=== PATIENT | male | born 1965 | race Caucasian/White ===

== ENCOUNTER 2024-05-30 05:30 | Emergency (ER) | payer BC, SELFPAY ==
--- OUTSIDE RECORDS SUMMARY | 2024-05-30 05:32 | XMS_ITS | Referral Summary ---
Author Organization [facility] Address [address] [place] [address] Care Team Providers Care Is Consultant Name Role Phone None Reported, Pcp Primary Care Provider Unavail able Source Comments Patient records contain information from all sites at [facility]. For routine questions regarding patient records, call [phone] during business hours, M-F 8:00 AM - 5:00 PM Central Time. Record requests for emergency care only can be directed to [phone] at any time.[facility] Allergies No known active allergies Medications No known medications Social History Tobacco Use Types Packs/Day Years Used Date Smoking Tobacco: Never Tobacco Cessation:Counseling Given: Not Answered Alcohol Use Standard Drinks/Week Comments Yes 0 (1 standard drink = 0.6 oz pur e alcohol) occasional Nutrition Answer Date Recorded Nutrition: EVOO Fat Source Unknown 08/26 Nutrition: Servings of Fruits/Vegetables per Day Not on file 08/26/2022 Dental Answer Date Recorded Dental: Regular Dentist Unknown 08/27/19 Sex and Gender Information Value Date Recorded Sex Assigned at Not on file Legal Sex Male 6:29 AM CDT Gender Identity Not on file Sexual Orientation Not on file Last Filed Vital Signs Vital Sign Reading Time Taken Comments Blood Pressure 128/78 08/26/2022 11:00 AM CDT Pulse 58 08/26/2022 11:00 AM CDT Temperature 36.8 C (98.2 F) 08/26/2022 6:45 AM CDT Respiratory Rate 12 08/26/2022 11:00 AM CDT Oxygen Saturation 95% 08/26/2022 11:00 AM CDT Inhaled Oxygen Concentration - - Weight 73.2 kg (161 lb 6 oz) 08/26/2022 8:04 AM CDT Height - - Body Mass Index - - Plan of Treatment Not on file Procedures Procedure Name Priority Date/Time Associated Diagnosis Comments GLUCOSE POCT, B Routine 08/26/2022 6:51 AM CDT from Last 3 Months or Most Recently Relevant to Health Maintenance Results * Glucose, POCT (08/26/2022 6:51 AM CDT) Glucose, POCT, B 90 70 - 140 mg/dL 08/26/2022 7:04 AM CDT PCLX Site Venstick 08/26/2022 7:04 AM CDT PCLX Blood 08/26/2022 6:51 AM CDT 08/26/2022 7:04 AM CDT us Unknown Provider LAB POCT ORDERABLES-MANUAL Priscilla l Result POC [facility] [address] [place] [address], [facility] PCLX [facility] [place] [facility] [address] [place] [address] from Last 3 Months or Most Recently Relevant to Health Maintenance Insurance [facility] Care Teams Is Consultant Relationship Specialty Start Date End Date None Reported, Pcp PCP - General Family Medicine 08/26/22
--- OUTSIDE RECORDS SUMMARY | 2024-05-30 05:32 | XMS_ITS | Clinical Summary ---
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 Name Role Phone Sotero Vidales MD Primary Care Provider [phone] Allergies No known active allergies Medications No known medications Active Problems Problem Noted Date Diagnosed Date Adenomatous colon polyp 11/20/2017 Overview (11/20/2017): Colonoscopy 11/2017 polyp, repeat in 5 years Immunizations Name Administration Dates Next Due Td, Preservative Free (age >= 7 Years) 7 Tdap 10/13/2017 Family History Medical History Relation Name Comments Diabetes Brother Heart Disease Father Other Father DVT Cancer-breast Mother Relation Name Status Comments Brother Father Mother Social History Tobacco Use Types Packs/Day Years Used Date Smoking Tobacco: Never Smokeless Tobacco: Never Alcohol Use Standard Drinks/Week Comments Yes 0 (1 standard drink = 0.6 oz pur e alcohol) very rarely PHQ-2 Answer Date Recorded PHQ-2 Score 0 07/21/2018 Sex and Gender Information Value Date Recorded Sex Assigned at Not on file Legal Sex Male 5:24 AM SOFTWARE CONSULTANT Gender Identity Not on file Sexual Orientation Not on file Obstetrics History Last Filed Vital Signs Vital Sign Reading Time Taken Comments Blood Pressure 126/68 07/26/2018 8:01 AM SOFTWARE CONSULTANT Pulse 69 07/26/2018 8:01 AM SOFTWARE CONSULTANT Temperature 36.4 C (97.5 F) 07/26/2018 8:01 AM SOFTWARE CONSULTANT Respiratory Rate - - Oxygen Saturation 98% 07/26/2018 8:01 AM SOFTWARE CONSULTANT Inhaled Oxygen Concentration - - Weight 69.7 kg (153 lb 9.6 oz) 07/26/2018 8:01 A M SOFTWARE CONSULTANT Height 179.5 cm (5' 10.67) 07/26/2018 8:[address] Body Mass Index 21.62 07/26/2018 8:01 AM SOFTWARE CONSULTANT Plan of Treatment Health Maintenance Due Date Last Done Comments HIV for age 15-65 1981 Hepatitis C screening for ag e 18-79 1984 Zoster (shingles) series for age 50+ (1 of 2) 2016 Depression screening for age 12+ 10/13/2018 10/13/2017 BMI (ht and wt on same day) for age 18+ 07/27/2019 07/26/2018, 10/13/2017 Lipids for age 45-75 10/13/2022 10/13/2017 Colonoscopy through age 75 11/17/202211/17, 11/17/2017 COVID-19 vaccine series (2023- season) 2024 Influenza for age 50-64 01/21/2024 Tetanus booster 10/14/2027 10/13/2017, 12/25/2006 Tdap Completed 10/13/2017 Pneumococcal series for age 6-49 Aged Out No longer eligible b ased on patient's age to complete this topic Procedures Procedure Name Priority Date/Time Associated Diagnosis Comments COLONOSCOPY 11/17/2017 9:16 AM CDT LIPID PANEL Routine 10/13/2017 9:53 AM CDT Screening, lipid from Last 3 Months or Most Recently Relevant to Health Maintenance Results * COLONOSCOPY (11/17/2017 9:16 AM CDT) 11/17/2017 9:16 AM CDT Narrative Transcriptions Ferny Harvey MD - 11/17/2017 10:09 AM CDT Patient Name: Buck Ervin Procedure Date: 11/17/2017 Gender: Male Date of : 1965 Admit Type: Outpatient Procedure: Colonoscopy Proceduralist: Ferny Harvey MD , Frieda Thompson (Nurse) Referring MD: Sotero Vidales Indications/Pre-Op Diagnosis: Screening for colorectal malignant neoplasm, This is the patient's first colonoscopy Medications: Fentanyl 100 micrograms IV, Midazolam 2 mgIV, The level of sedation administered wasmoderate Procedure Description: The patient had risks, benefits and alternatives explained to andgave informed consent. The patient had a stable cardiopulmonary status and judged an adequate candidate for conscious sedation. The [id number] was passed through the anus and advanced tothe cecum, identified by appendiceal orifice and ileocecal valve. The colonoscopy was performed without difficulty. The patient toleratedthe procedure well. The quality of the bowel preparation was good. The ileocecal valve, appendiceal orifice, and rectum were photographed. Complications: No immediate complications. Estimated Blood Loss & Specimen: Estimated blood loss: none. Specimen collected - Yes and sent to Laboratory Findings: The perianal and digital rectal examinations were normal. Two sessile polyps were found in the ascending colon. The polyps were2 mm in size. These polyps were removed with a cold biopsy forceps. Resection and retrieval were complete. The exam was otherwise without abnormality on direct and retroflexion views. Impressions/Post-Op Diagnosis: - Two 2 mm polyps in the ascending colon, removed with a cold biopsy forceps. Resected and retrieved. - The examination was otherwise normal on direct and retroflexionviews. Recommendation: - Patient has a contact number available for emergencies. The signsand symptoms of potential delayed complications were discussed with the patient. Return to normal activities tomorrow. Written discharge instructions were provided to the patient. - Resume previous diet. - Continue present medications. - Await pathology results. - Repeat colonoscopy for surveillance based on pathology results. Moderate Sedation: Moderate (conscious) sedation was administered by the endoscopy nurse and supervised by the endoscopist. The following parameters were monitored: oxygen saturation, heart rate, respiratory rate, blood pressure, adequacy of pulmonary ventilation and reponse to care. Please refer to the patien'ts medical record flowsheets and nursing notes for moderate sedation details. Total physician intraservice time was 17 minutes. Ferny Harvey MD 11/17/2017 10:09:30 AM This report has been signed electronically. Note Initiated On: 11/17/2017 9:16 AM Procedure Code(s): --- Professional --- 01097, Colonoscopy, flexible; with biopsy, single or multiple Diagnosis Code(s): --- Professional --- Z12.11, Encounter for screening formalignant neoplasm of colon D12.2, Benign neoplasm of ascending colon CPT copyright 2017 [employer] [place] [employer]. All rights reserved. The codes documented in this report are preliminary and upon school manager reviewmay be revised to meet current compliance requirements. Scope In: 9:49:26 AM Scope Withdrawal Time 0 hours 9 minutes 0 seconds Scope Out: 10:04:31 AM us Ferny Harvey MD PROCEDURE ORD Final Res ult * LIPID PANEL (10/13/2017 9:53 AM CDT) CHOLESTEROL,TOTAL 121 100 - 199 mg/dL 10/13/2017 4:25 PM CDT [facility] LABORATORY-[facility] TRAL LABORATORY TRIGLYCERIDES 35 <150 mg/dL 10/13/2017 4:25 PM CDT [facility] LABORATORY-[facility] TRAL [facility] HDL CHOLESTEROL 42 >40 mg/dL 8 4:25 PM CDT [facility] TRAL LAB[facility]ATORY NON-HDL CHOLESTEROL 79 <145 mg/dl 10/13/2017 4:25 PM CDT [facility] CHOL/HDL RATIO 2.88 <4.50 10/13/2017 4:25 PM CDT [facility] LDL CHOLESTEROL 72 <=130 mg/dL 10/13/2017 4:25 PM CDT [facility] TRAL LABORATORY PROVIDER ORDERED STATUS RANDOM 10/13/2017 4:25 PM CDT [facility] TR[facility] LAB[facility] Blood BLOOD SPECIMEN / Unknown Venipuncture / Unknown 10/13/2017 9:53 AM CDT 10/13/2017 9:53 AM CDT us Sotero Vidales MD CHEMISTRY Final Resu lt [facility] [address] [place] [address], [place] from Last 3 Months or Most Recently Relevant to Health Maintenance Insurance [facility] Care Teams Major League Baseball Player Relationship Specialty Start Date End Date Sotero Vidales MD [address] [place] [address] PCP - General Family Practice 09/25/17
--- OUTSIDE RECORDS SUMMARY | 2024-05-30 05:32 | XMS_ITS | Clinical Summary ---
Author Organization [facility] Address [address] [place] [address] Care Team Providers Care Air Conditioning Mechanic Industrial Name Role Phone None Reported, Pcp Primary Care Provider Unavail able Source Comments Patient records contain information from all sites at [facility]. For routine questions regarding patient records, call [phone] during business hours, M-F 8:00 AM - 5:00 PM Central Time. Record requests for emergency care only can be directed to [phone] at any time.[facility] Allergies No known active allergies Medications No [...] Mass Index - - Plan of Treatment Health Maintenance Due Date Last Done Comments CT Colonography 1965 Cologuard 1965 Colonoscopy 1965 Colorectal Cancer Screening 1965 FIT 1965 HIV Screening 1965 Hepatitis C Screening 1965 Lipid (Cholesterol) Screening 1966 Hepatitis B Vaccines (1 of 3 - 19+ 3-dose series) 1985 Pneumococcal vaccine (50+ years) (1 of 1 - PCV) 2016 Zoster Vaccines (1 of 2) 2016 Depression Screening (Annual PHQ-2) 05/22/2023 COVID-19 Vaccine (3 - 2023-2 5 season) 2024 10/09/2020, 09/11/2020 Influenza Vaccine (#1) 2024 Fasting Glucose for Diabetes Screening 08/26/2025 08/26/2022, 08/26/2022 DTaP,Tdap,and Td Vaccines (2 - Td or Tdap) 10/14/2027 10/13/2017, 12/25/2006 IPV Vaccines Aged Out No longer eligi ble based on patient's age to complete this topic Pneumococcal vaccine (0-49 years) Aged Out No longer eligible b ased [...] LAB POCT ORDERABLES-MANUAL Priscilla l Result POC [facility] [address] [place] [address], [place] PCLX [facility] P[facility] [address] [place] [address] from Last 3 Months or Most Recently Relevant to Health Maintenance Insurance [facility] Care Teams Air Conditioning Mechanic Industrial Relationship Specialty Start Date End Date None Reported, Pcp PCP - General Family Medicine 08/26/22
--- OUTSIDE RECORDS SUMMARY | 2024-05-30 05:32 | XMS_ITS ---
Author Organization [facility] Address [address] [place] [address] Care Team Providers Care Supervisor Seaming Name Role Phone Unavailable Unavailable Unavailable Surgery Details Not on file Complications Check Surgery Details section. Procedure Estimated Blood Loss Check Surgery Details section. Procedure Findings Check Surgery Details section. Procedure Specimens Taken Check Surgery Details section.
[2024-05-30 05:38] VITALS: BP 148/83; PULSE 61; RESP 18; TEMP 36.6; O2SAT 98; BMI 21.2
[2024-05-30 06:24] LABS: Basophils Absolute Auto 0.03 K/uL (0.00-0.30); Basophils Percent Auto 0.5 % (0.0-3.0); Eosinophils Absolute Auto 0.03 K/uL (0.00-0.50); Eosinophils Percent Auto 0.5 % (0.0-7.0); Hematocrit 47.6 % (37.0-53.0); Hemoglobin* 15.8 gm/dL (13.5-17.5); Immature Granulocytes Abs Auto 0.03 K/uL (0.00-0.30); Immature Granulocytes Pct Auto 0.5 %; Lactate* 1.4 mmol/L (0.5-1.9); Lymphocytes Absolute Auto 1.14 K/uL (0.90-2.90); Lymphocytes Percent Auto 20.4 % (20-44); Mean Corpuscular HGB Conc 33 gm/dL (32-36); Mean Corpuscular Hemoglobin 28 pg (26-34); Mean Corpuscular Volume 85 fL (80-100); Monocytes Percent Auto 7.7 % (0.0-11.0); Neutrophils Absolute Auto 3.92 K/uL (1.7-7.0); Neutrophils Percent Auto 70.4 % (42.0-72.0); Platelet Count* 218 K/uL (140-440); RDW Coefficient of Variation % 12.5 % (11.5-15.5); White Blood Count* 5.58 K/uL (4.50-11.00)
[2024-05-30 06:25] LABS: Appearance Urine Clear (Clear); Bilirubin Urine Negative (Negative); Blood Urine 3+ (Negative); Color Urine Yellow (Yellow); Glucose Urine Negative (Negative); Ketones Urine Negative (Negative); Leukocyte Esterase Urine Negative (Negative); Nitrite Urine Negative (Negative); Protein Urine 1+ (Negative); Urobilinogen Urine 0.2 (0.2-1.0); pH Urine 8.5 (5.0-8.5)
[2024-05-30 06:26] LABS: Slide Review Reflex No
[2024-05-30 06:33] LABS: Amorphous Sediment Urine Few; Bacteria Urine Few; Squamous Epithelial Cell Urine Few (None-Few)
[2024-05-30 06:41] LABS: Chloride* 105 mmol/L (96-114); Sodium* 140 mmol/L (135-149)
[2024-05-30 06:42] LABS: Potassium* 4.4 mmol/L (3.6-5.1)
[2024-05-30 06:44] LABS: Anion Gap 5 mEq/L (7-15); Blood Urea Nitrogen* 16 mg/dL (7-30); Carbon Dioxide* 30 mmol/L (20-32); Creatinine* 1.2 mg/dL (0.5-1.5); Est. Creatinine Clearance* 67.98; Estimated Glomerular Filt Rate 71 ml/min
[2024-05-30 06:45] LABS: Calcium* 9.4 mg/dL (8.4-10.6); Glucose* 121 mg/dL (60-115)
--- NOTE | 2024-05-30 06:47 | CRLHL7_ITS ---
For Patients: As a result of the 21st Century Cures Act, medical imaging exams and procedure reports are released immediately into your electronic medical record. You may view this report before your referring provider. If you have questions, please contact your health care provider. INDICATION: Lower abdominal pain not otherwise specified. COMPARISON: None available. TECHNIQUE: CT of the abdomen and pelvis without intravenous contrast. Please note that all CT scans at this facility use dose modulation, iterative reconstruction, and/or weight-based dosing when appropriate to reduce radiation dose to as low as reasonably achievable. FINDINGS: The study is performed without intravenous contrast. This limits the sensitivity of the exam for the detection bowel pathology, focal lesions of the abdominopelvic viscera and vascular pathology including significant vascular stenosis, occlusion and dissection. ABDOMEN Liver: Normal contour and attenuation. No significant focal lesion. No intrahepatic biliary ductal dilatation. Gallbladder: Normal size. No pericholecystic inflammatory changes. Normal common duct caliber. Pancreas: Normal contour and attenuation. No peripancreatic inflammatory changes. No significant focal lesion. Normal main duct caliber. Spleen: Not enlarged. No significant focal lesion. Accessory splenule. Adrenal Glands: Symmetrical adrenal glands. No significant focal lesion. Kidneys: 5 mm obstructing distal right ureteral stone (2; 113). Associated mild right pelvicaliectasis, right renal edema and perinephric fat stranding consistent with obstructive uropathy. 1.7 cm posterolateral right lower pole renal cortical cyst (2; 65). Unremarkable unenhanced left kidney. Gastrointestinal tract: Normal caliber, attenuation and wall thickness of the gastrointestinal tract. No inflammatory changes. Normal small bowel mesentery. Vascular: Chronic minimal aortoiliac atherosclerotic mural calcification. Normal outer wall to outer wall abdominal aortic caliber. Patency and luminal caliber of the abdominopelvic arterial and venous vasculature cannot be assessed on this noncontrast study. Peritoneal Cavity/Retroperitoneum: No ascites. No adenopathy. PELVIS No bladder lesion is identified. No significant incidental findings related to the prostate or seminal vesicles. No significant ascites. No adenopathy. SKELETON AND BODY WALL Small fat containing direct left inguinal hernia. Small left femoral intertrochanteric bone island. LOWER THORAX Partially included lower thoracic wall, lungs, pleural spaces and mediastinum are otherwise without significant incidental findings. IMPRESSION: 5 mm obstructing distal right ureteral stone (2; 113). Associated mild right pelvicaliectasis, right renal edema and perinephric fat stranding consistent with obstructive uropathy. Incidental findings described in the body of the report. Please note that all CT scans at this facility use dose modulation, iterative reconstruction, and/or weight-based dosing when appropriate to reduce radiation dose to as low as reasonably achievable. Dictated by Gabe Barr MD @ 05/30/2024 7:30:26 AM (Electronically Signed)
[2024-05-30] MEDS: ONDANSETRON 2 MG/ML inj 4 MG IVP (06:49)
--- NOTE | 2024-05-30 07:13 | ED.GENADULT ---
HPI - General Adult General Date Seen: 05/30/24 Chief complaint: Abdominal Pain Stated complaint: abdominal pain Time Seen by Provider: 05/30/24 06:47 Source: patient and family Mode of arrival: ambulatory Limitations: no limitations History of Present Illness HPI narrative: Patient is a 58-year-old female with no significant medical history who comes in with sudden onset of lower abdominal pain. This is bilateral. He has been having some aching in his low back for a couple of years but no acute all back pain in the past day or two. He has had a feeling of urinary pressure but no dysuria. No gross hematuria. No fevers or chills. He vomited here in the ER but did not vomit prior to his arrival. No history of kidney stones. He takes no medications regularly. He does not have a local doctor. Related Data Previous Rx's ?Medication ?Instructions ?Recorded oxycodone 5 mg tablet 5 mg PO Q6H PRN pain #15 tabs 05/30/24 tamsulosin 0.4 mg capsule (Flomax) 0.4 mg PO DAILY #14 caps 05/30/24 Allergies Allergy/AdvReac Type Severity Reaction Status Date / Time No Known Drug Allergies Allergy Verified 05/30/24 05:41 Review of Systems Narrative: Review of systems is outlined above otherwise noted to be negative. PFSH PFSH Social History Do you use any of these nicotine containing products: None Non-prescribed substance use: denies use Exam Narrative: Exam Narrative: Vitals noted. HEENT: Conjunctiva clear. Neck is supple without adenopathy. Lungs: Clear to auscultation in all zaragoza. No wheezes, rales, rhonchi. Heart: Regular rate and rhythm without murmur. Abdomen: There is some mild bilateral lower quadrant tenderness. No CVA tenderness. No guarding, rigidity, rebound. Bowel sounds are normal. No palpable masses. Extremities: No cyanosis or edema. Good distal pulses. Skin: No abnormalities noted of the exposed skin. Neurologic: Awake, alert, fully oriented. Neurologic exam is nonfocal. Const: Vital Signs, click to edit/add: Vital Signs - 24 hr 05/30/24 05:38 Temperature 97.8 F Pulse Rate [Pulse Oximeter] 61 Respiratory Rate 18 Blood Pressure [Ri ght Upper Arm] 148/83 H Pulse Oximetry 98 Oxygen Delivery Me thod Room Air Course Course ED Course: Patient was seen and examined. Urinalysis shows 10-25 red cells and 2-5 white cells. Basic metabolic panel is normal. CBC is normal. Reevaluation(s) Reevaluation #1: CT scan of the abdomen and pelvis shows a 5 mm a distal right ureteral stone with evidence of obstruction. Vital Signs Vital signs: Initial Vital Signs Temperature 97.8 F 05/30/24 05:38 Temperature Source Temporal Artery Scan 05/30/24 05:38 Pulse Rate 61 05/30/24 05:38 Respiratory Rate 18 05/30/24 05:38 Blood Pressure 148/83 H 05/30/24 05:38 Blood Pressure Mean 104 05/30/24 05:38 Blood Pressure Position Sitting 05/30/24 05:38 Pulse Oximetry 98 05/30/24 05:38 Oxygen Delivery Method Room Air 05/30/24 05:38 Vital Signs Temperature 97.8 F 05/30/24 05:38 Pulse Rate 61 05/30/24 05:38 Respiratory Rate 18 05/30/24 05:38 Blood Pressure 148/83 H 05/30/24 05:38 Pulse Oximetry 98 05/30/24 05:38 Oxygen Delivery Method Room Air 05/30/24 05:38 Temperature 97.8 F 05/30/24 05:38 Pulse Rate 61 05/30/24 05:38 Respiratory Rate 18 05/30/24 05:38 Blood Pressure 148/83 H 05/30/24 05:38 Pulse Oximetry 98 05/30/24 05:38 Oxygen Delivery Method Room Air 05/30/24 05:38 Medications Administered Medications: Discontinued Medications Generic Name Dose Route Start Last Admin Trade Name Mendezq PRN Reason Stop Dose Admin Ondansetron HCl 4 mg 05/30/24 06:47 05/30/24 06:49 Ondansetron 2 Mg/Ml Inj IVP 05/30/24 06:48 4 mg ONCE ONE Administration Medical Decision Making Lab Data Labs: Lab Results 05/30/24 Range/Units 06:20 WBC 5.58 (4.50-11.00) K/uL RBC 5.60 (4.30-5.90) m/uL Hgb 15.8 (13.5-17.5) gm/dL Hct 47.6 (37.0-53.0) % MCV 85 (80-100) fL MCH 28 (26-34) pg MCHC 33 (32-36) gm/dL RDW Coeff of Matilde 12.5 (11.5-15.5) % Plt Count 218 (140-440) K/uL Neut % (Auto) 70.4 (42.0-72.0) % Lymph % (Auto) 20.4 (20-44) % [place] % (Auto) 7.7 (0.0-11.0) % Eos % (Auto) 0.5 (0.0-7.0) % Baso % (Auto) 0.5 (0.0-3.0) % Neut # (Auto) 3.92 (1.7-7.0) K/uL Lymph # (Auto) 1.14 (0.90-2.90) K/uL [place] # (Auto) 0.40 (0.00-0.90) K/UL Eos # (Auto) 0.03 (0.00-0.50) K/uL Baso # (Auto) 0.03 (0.00-0.30) K/uL Abs Immat Gran (auto) 0.03 (0.00-0.30) K/uL Imm/Tot Granulo (auto) 0.5 % Sodium 140 (135-149) mmol/L Potassium 4.4 (3.6-5.1) mmol/L Chloride 105 (96-114) mmol/L Carbon Dioxide 30 (20-32) mmol/L Anion Gap 5 L (7-15) mEq/L BUN 16 (7-30) mg/dL Creatinine 1.2 (0.5-1.5) mg/dL Estimated Creat Clear 67.98 Estimated GFR 71 ml/min Glucose 121 H (60-115) mg/dL Lactate 1.4 (0.5-1.9) mmol/L Calcium 9.4 (8.4-10.6) mg/dL Urine Color Yellow (Yellow) Urine Appearance Clear (Clear) Urine pH 8.5 (5.0-8.5) Ur Specific Marine 1.020 (1.000-1.030) Urine Protein 1+ A (Negative) Urine Glucose (UA) Negative (Negative) Urine Ketones Negative (Negative) Urine Blood 3+ A (Negative) Urine Nitrite Negative (Negative) Urine Bilirubin Negative (Negative) Urine Urobilinogen 0.2 (0.2-1.0) Ur Leukocyte Esterase Negative (Negative) Urine RBC 10-25 A (0-2) Urine WBC 2-5 (0-5) Ur Squamous Epith Cells Few (None-Few) Amorphous Sediment Few A (None) Urine Bacteria Few A (None) Discharge Plan Discharge Clinical Impression: Calculus of kidney Patient Disposition: Home, Self-Care Condition: Stable Instructions: Kidney Stones (ED) Additional Instructions: Push fluids. Flomax 0.4 mg daily until the stone passes. Tylenol 1000 mg every 6 hours as needed for pain. Oxycodone 5 mg every 6 hours as needed for pain. Return to the emergency department if the pain is uncontrollable or fever still having pain in another 2-3 days. At some point you should establish care with a local physician. Your stone is 5 mm in size and is on the right side. Strain your urine and if your able to catch a stone bring it to your PCP for analysis. Prescriptions: New tamsulosin [Flomax] 0.4 mg capsule 0.4 mg PO DAILY Qty: 14 0RF oxycodone 5 mg tablet 5 mg PO Q6H PRN (Reason: pain) Qty: 15 0RF Follow Up/Referrals: Provider,Not a Local [Primary Care Provider] - Stand Alone Forms: Data3Sixty Info Instructions
== END 2024-05-30 08:02 | disposition home or self-care (01) ==
PROVIDERS: Emergency Provider Family Medicine
DX: N20.0 Calculus of kidney (principal)
CPT/HCPCS: 36415; 74176; 80048; 81001; 81003; 83605; 85025; 87086; 96374; 99282; 99283; J2405